=== PATIENT | female | born 1995 | race Caucasian/White ===

== ENCOUNTER 2018-06-18 00:01 | Emergency (ER) | payer SELFPAY ==
[~2018-06-18] VITALS: Ht 160 cm; Wt 72.6 kg
[2018-06-18 00:05] VITALS: BP 106/50
--- NOTE | 2018-06-18 00:09 | NUR ---
PT AMBULATED TO BED 06.
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
--- NOTE | 2018-06-18 00:55 | NUR ---
XRAY AT BEDSIDE.
[2018-06-18 01:46] LABS: APPEARANCE,URINE CLEAR (CLEAR); BILIRUBIN,URINE NEGATIVE (NEGATIVE); BLOOD, URINE NEGATIVE (NEGATIVE); COLOR,URINE YELLOW (YELLOW); LEUKOCYTE ESTERASE ,URINE NEGATIVE (NEGATIVE); NITRITE, URINE NEGATIVE (NEGATIVE); UGLUCOSE NEGATIVE (NEGATIVE)
[2018-06-18 01:49] VITALS: BP 98/59
--- NOTE | 2018-06-18 01:49 | NUR ---
Patient discharged with v/s stable. Written and verbal after care instructions given and explained. Patient alert, oriented and verbalized understanding of instructions. Ambulatory with steady gait. All questions addressed prior to discharge. ID band removed. Patient advised to follow up with PMD. Rx of Tylenol and Motrin given. Patient educated on indication of medication including possible reaction and side effects. Opportunity to ask questions provided and answered.
[2018-06-18 01:58] LABS: RBC,URINE 0-5 /HPF (0-5); WBC,URINE 0-5 /HPF (0-5)
== END 2018-06-18 01:49 | disposition home or self-care (01) ==
LOC: MED 00:01
DX: S93.601A Unspecified sprain of right foot, initial encounter (principal); S93.401A Sprain of unspecified ligament of right ankle, initial encounter; M25.521 Pain in right elbow; V03.10XA Pedestrian on foot injured in collision with car, pick-up truck or van in traffic accident, initial encounter; Y93.01 Activity, walking, marching and hiking; Y92.410 Unspecified street and highway as the place of occurrence of the external cause; Y99.8 Other external cause status
CPT/HCPCS: 73080; 73610; 73630; 81001; 81025; 87086; 99284; Q0092